=== PATIENT | male | born 1945 | race Caucasian/White ===

== ENCOUNTER 2016-12-21 05:53 | Day surgery (SDC) | payer OTHER ==
[2016-12-21] MEDS ORDERED: LR 1,000 ML IV ONE (06:31)
[2016-12-21] MEDS ORDERED: LIDOCAINE 1% 5 ML SDV ID PRN (06:31)
[2016-12-21] MEDS ORDERED: BUPIVACAINE 0.5% 30 ML SDV ONE (07:00)
[2016-12-21] MEDS ORDERED: MIDAZOLAM 2 MG/2 ML VIAL ONE (07:04)
[2016-12-21] MEDS ORDERED: PROPOFOL/EMULSION 500 MG/50 ML BOTTLE IV ONE (07:22)
[2016-12-21] MEDS ORDERED: fentaNYL 250 MCG/5 ML INJ ONE (07:33)
[2016-12-21] MEDS ORDERED: ONDANSETRON 4 MG/2 ML VIAL ONE (08:21)
[2016-12-21] MEDS ORDERED: DEXAMETHASONE 4 MG/ML VIAL ONE (08:21)
[2016-12-21] MEDS ORDERED: SUGAMMADEX SODIUM 200 MG/2 ML VIAL IVP ONE (08:21)
[2016-12-21] MEDS ORDERED: OXYCODONE/APAP 5/325 TAB ONE (09:33)
--- NOTE | 2016-12-21 11:55 | GOP ---
[f rep st] OPERATIVE REPORT DATE OF OPERATION: 12/21/2016 SURGEON: Osmin Colon MD ANESTHESIA: General endotracheal anesthesia. ANESTHESIOLOGIST: Dr. Prince. PREOPERATIVE DIAGNOSIS: Bilateral inguinal hernia. POSTOPERATIVE DIAGNOSIS: Bilateral inguinal hernia. PROCEDURE PERFORMED: Laparoscopic totally extraperitoneal bilateral inguinal hernia repair. FINDINGS: The patient had a moderate indirect and a large lipoma on the right, and a small indirect with a moderate lipoma on the left. ESTIMATED BLOOD LOSS: 20 cc. INDICATIONS: A 71-year-old male with a history of a right groin bulge. Risks and benefits of procedu re were discussed with the patient and his family. Their questions were answered. They wished to proc eed. DESCRIPTION OF PROCEDURE: The patient was placed in the supine position. After the induction of adeq uate general endotracheal anesthesia, the patient was prepped and draped in the sterile surgical fash ion. Marcaine 0.5% was injected in the infra-umbilical area and a transverse incision was made, appro ximately 10 mm in length. This was carried down to the subcutaneous tissue with blunt dissection. The anterior fascia was exposed and incised just lateral to the midline. The preperitoneal space was the n created bluntly, and the balloon dissector introduced. Once this was appropriately positioned, it w as inflated under direct vision using the laparoscope. Once adequate dissection had been obtained, th e balloon was deflated and withdrawn. The balloon stabilizer was then placed into the same preperiton eal plane. The balloon stabilizer was then inflated. The preperitoneal space was then insufflated with carbon dioxide. Two more trocars were placed, both in the midline in the supraumbilical and mid lower abdomen sites. These were both placed under direct vision after injecting 0.5% Marcaine for local anesthesia. Blunt dissection was used to expose Hesselbach's triangle. Lebron's ligament was then exposed and the femoral space explored. Next the space of Bogros was cleared laterally. The cord structures were see n and preserved, and the preperitoneal fat was retracted in a [id number] fashion. The hernia sac was then retracted in a similar fashion. A shaped mesh was then introduced through the 11-mm trocar and oriented appropriately. It was positioned to ensure coverage of the direct, indirec t, and femoral spaces. The peritoneum and preperitoneal fat was placed over the bottom edge of the me sh to ensure placement. The carbon dioxide was then allowed to escape and the mesh observed to ensure positioning. All trocars were then removed under direct vision. Good hemostasis was noted. The fascia at the 11-mm trocar site was closed with 0 Vicryl in an interrupted fashion. The wounds we re thoroughly irrigated, and the skin was closed with 5-0 Monocryl in a subcuticular stitch. The woun ds were sterilely dressed. The patient was extubated and taken to the post-anesthesia care unit in st able condition. COMPLICATIONS: None. DRAINS: None. ADDENDUM: A large Bard 3D max mesh was used on either side. /[id number]/MODL
== END 2016-12-21 10:50 | disposition home or self-care (01) ==
LOC: FSGY 05:53
PROVIDERS: ATTEND Surgery
PROC: 0YQA4ZZ Repair Bilateral Inguinal Region, Percutaneous Endoscopic Approach (ICD-10-PCS; principal; 2016-12-21 07:15)
DX: K40.20 Bilateral inguinal hernia, without obstruction or gangrene, not specified as recurrent (principal)
CPT/HCPCS: 49650; C1727; C1781; J0690; J1100; J2250; J2405; J2704; J3010

== ENCOUNTER → 2018-03-31 | Outpatient (CLI) | payer OTHER | LOC: BMCIMAGING 09:05 | PROVIDERS: ATTEND Physician Assistant | DX: M19.011 Primary osteoarthritis, right shoulder (principal) ==